=== PATIENT | male | born 2005 | race Caucasian/White ===

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

== ENCOUNTER → 2023-09-09 11:21 | Outpatient (BNVA) | payer MEDICAID, SELFPAY | PROVIDERS: PCP Nurse Practitioner Family; Visit Provider Nurse Practitioner Family | DX: R42 Dizziness and giddiness (principal); Z79.899 Other long term (current) drug therapy; D64.9 Anemia, unspecified | CPT/HCPCS: 80053; 80061; 81003; 82607; 83036; 84439; 84443; 84481; 85025; 87400; 93005 ==

== ENCOUNTER → 2023-09-09 11:21 | Outpatient (BNVA) | payer MEDICAID, SELFPAY | PROVIDERS: PCP Nurse Practitioner Family; Visit Provider Nurse Practitioner Family | DX: R42 Dizziness and giddiness (principal); Z79.899 Other long term (current) drug therapy; D64.9 Anemia, unspecified; Z87.898 Personal history of other specified conditions; Z01.89 Encounter for other specified special examinations; R07.9 Chest pain, unspecified | CPT/HCPCS: 87400 ==

== ENCOUNTER 2023-09-23 09:42 | Emergency (ER) | payer MEDICAID, SELFPAY ==
--- NOTE | 2023-09-23 10:19 | ECG_ITS ---
[facility] Test Date: 2023-09-23 Pat Name: Alex Newton Department: Room: Gender: Male Publicity Person: : 2005 Requested By: Lisa Khalil Order Number: [id number] Armando MD: Ollie North M.D. Measurements Intervals [place] Rate: 88 P: 60 WY: 153 QRS: 92 QRSD: 105 T: 51 QT: 341 QTc: 414 Interpretive Statements SINUS RHYTHM WITH MARKED SINUS ARRHYTHMIA BORDERLINE RIGHT AXIS DEVIATION [QRS AXIS > 90] No previous ECG available for comparison Electronically Signed On 09-23-2023 12:04:41 WEB SITE PROJECT MANAGER by Ollie North M.D. [email or web address] county medical centerLive Matrixmercy health clermont hospitalLife Sciences Discovery [email or web address]/[id number]
[2023-09-23 10:24] VITALS: BP 154/95; PULSE 78; RESP 15; TEMP 36.8; O2SAT 100; BMI 26.4
--- NOTE | 2023-09-23 10:24 | CT_ITS ---
WS: [id number] CT HEAD NONCONTRAST HISTORY: dizzy TECHNIQUE: Contiguous axial imaging performed through the brain in 2.5 mm imaging. Bone and soft tiss ue windows. Sagittal and coronal reformats reviewed. All CT scans at [facility] use at least one of these dose optimization techniques: automated exposure control; mA and/or kV adjustment per pa tient size (includes targeted exams where dose is matched to clinical indication); or iterative recon struction. DLP: 1061.58 mGy.cm COMPARISON: None available. No acute intracranial hemorrhage, midline shift or mass effect. No atrophy or prior infarcts or herniation. Ventricles: Normal size with no hydrocephalus. Paranasal sinuses: As visualized are clear. Mastoid air cells: Well pneumatized. Calvarium and scalp: Skull is intact with no soft tissue edema or swelling. IMPRESSION: Negative head CT.
--- NOTE | 2023-09-23 10:25 | W.ED.GENADLT ---
HPI - General Adult General: Chief complaint: Syncope Stated complaint: passed out at work Time Seen by Provider: 09/23/23 10:18 Source: patient Mode of arrival: ambulatory Limitations: no limitations History of Present Illness: 18-year-old male states that he has been having vertigo for the last 6 months he states he seen his PCP multiple times on meclizine states he continues to have episodes of vertigo states this morning it bent over stood up at work and felt like he was going to pass out. Denies any headache denies any vomiting. It is much worse with sudden movements. Associated symptoms: Deny chest pain, dyspnea, headache(s), nausea, rash or vomiting Review of Systems Const: Denies: fever(s), chills, body aches or change in appetite Eyes: Denies: blurry vision or eye discomfort ENMT: Denies: throat pain or dental pain Card: Denies: chest pain Resp: Denies: dyspnea GI: Denies: abdominal pain, nausea, vomiting or diarrhea Musc: Denies: neck pain or back pain Skin/Breast: Denies: rash Neuro: Reports: dizziness; Denies: headache(s) PFSH ED PFSH: Medical History Chest pain History of tachycardia Nausea & vomiting Dizziness Hypertension screen Medication management Fatigue Vitamin D deficiency Neck pain Pseudomonas aeruginosa infection Staph skin infection Social History Smoking and tobacco/nicotine status: never used tobacco/nicotine Second hand smoke exposure: No Alcohol intake: never Substance/Drug Use: never Physical Exam Const: COMMON NORMALS: no acute distress, patient oriented x3 and healthy appearing HENMT: COMMON NORMALS: normocephalic and atraumatic HEAD & SCALP: normocephalic and atraumatic Eye: COMMON NORMALS: Equal, round and reactive pupils present and EOMs intact bilaterally PUPIL: Yes Equal, round and reactive pupils present OTHER: no nystagmus Neck/C-Spine: COMMON NORMALS: full ROM and supple Chest: COMMONS NORMALS: normal inspection of the chest Resp: COMMON NORMALS: normal respiratory effort, No retractions, No use of accessory muscles and clear to auscultation bilaterally AUSCULTATION: clear to auscultation bilaterally Cardio: COMMON NORMALS: regular rate, regular rhythm and No murmurs present (Cardio) RATE: regular rate RHYTHM: regular rhythm Extremity: COMMON NORMALS: normal to inspection and full ROM Neuro: COMMON NORMALS: patient oriented x3, moves all extremities and no focal motor deficits Psych: COMMON NORMALS: mental status grossly normal, Normal thought process present and cooperative THOUGHT PROCESS: Normal thought process present Skin: COMMON NORMALS: no rashes or lesions noted and no wounds GENERAL SKIN EXAM: no rashes or lesions noted Course Vital Signs: Vital signs: Vital Signs Temperature 98.2 F 09/23/23 10:24 Pulse Rate 78 09/23/23 10:24 Respiratory Rate 15 09/23/23 10:24 Blood Pressure 154/95 09/23/23 10:24 Pulse Oximetry 100 09/23/23 10:24 Oxygen Delivery Me thod Room Air 09/23/23 10:24 MDM - General Adult Medical Decision Making Patient presents here with vertigo it has been going on for months he is well-appearing here he has no signs of a stroke head CT is normal we will get him follow-up with neurology he is return if worsening he understands agrees to plan Medical Records I reviewed the patient's medical records. Lab Data I reviewed the patient's lab results. 09/23/23 10:24 09/23/23 10:24 Laboratory Results WBC 6.30 10^3/uL (4.5-13.0) 09/23/23 10:24 RBC 5.21 10^6/uL (3.85-5.65) 09/23/23 10:24 Hgb 15.00 g/dL (13.2-15.6) 09/23/23 10:24 Hct 44.0 % (37-53) 09/23/23 10:24 MCV 84.5 fl (82-101) 09/23/23 10:24 MCH 28.8 pg (27-33) 09/23/23 10:24 MCHC 34.1 g/dL (30-55) 09/23/23 10:24 RDW 11.9 % (12.1-15.1) L 09/23/23 10:24 Plt Count 199 10^3/cmm (157-399) 09/23/23 10:24 MPV 8.9 fL (7.4-10.4) 09/23/23 10:24 Neut % (Auto) 65.8 % 09/23/23 10:24 Lymph % (Auto) 21.1 % 09/23/23 10:24 Barnes % (Auto) 8.9 % 09/23/23 10:24 Eos % (Auto) 3.7 % 09/23/23 10:24 Baso % (Auto) 0.3 % 09/23/23 10:24 Neut # (Auto) 4.15 10^3/uL (1.8-8.0) 09/23/23 10:24 Lymph # (Auto) 1.3 10^3/uL (1.5-6.5) L 09/23/23 10:24 Barnes # (Auto) 0.6 10^3/uL (0.2-0.9) 09/23/23 10:24 Eos # (Auto) 0.2 10^3/uL (0.0-0.8) 09/23/23 10:24 Baso # (Auto) 0.0 10^3/uL (0.0-0.1) 09/23/23 10:24 Nucleated RBC % (auto) 0 % 09/23/23 10:24 Nucleated RBCs # 0.0 /100WBC 09/23/23 10:24 Sodium 140 mmol/L (136-145) 09/23/23 10:24 Potassium 3.8 mmol/L (3.5-5.1) 09/23/23 10:24 Chloride 102 mmol/L (98-107) 09/23/23 10:24 Carbon Dioxide 26 mmol/L (22-29) 09/23/23 10:24 Anion Gap 15.8 (5-19) 09/23/23 10:24 BUN 14 mg/dL (6-20) 09/23/23 10:24 Creatinine 0.7 mg/dL (0.7-1.2) 09/23/23 10:24 GFR Calculation 143.8 mL/min (90-130) H 09/23/23 10:24 Glucose 101 mg/dL (65-115) 09/23/23 10:24 Calculated Osmolality 291 mOsm/kg (285-295) 09/23/23 10:24 Calcium 9.3 mg/dL (8.5-10.5) 09/23/23 10:24 Total Bilirubin 0.4 mg/dL (0.15-1.2) 09/23/23 10:24 AST 14 U/L (0-40) 09/23/23 10:24 ALT 19 U/L (0-41) 09/23/23 10:24 Alkaline Phosphatase 82 U/L (40-130) 09/23/23 10:24 Total Protein 7.4 g/dL (6.6-8.7) 09/23/23 10:24 Albumin 4.6 g/dL (3.5-5.2) 09/23/23 10:24 Globulin 2.8 g/dL (1.3-4.6) 09/23/23 10:24 All radiology interpretation(s) finalized by discharge EKG Data EKG 1: I personally reviewed and interpreted this EKG as follows: EKG interpretation date: 09/23/23 EKG interpretation time: 10:19 Interpretation: nsr hr [address] or t wave abnormalities qrs 105 qtc 387 Discharge Plan Discharge Patient Disposition: Home Clinical Impression: Vertigo Condition: Stable Prescriptions: No Action meclizine 12.5 mg tablet 12.5 mg PO .q6 PRN (Reason: dizziness) 30 Days Qty: 30 0RF Discharge Orders: Discharge ED (Routine); Ordered 09/23/23 Ordered By: Lisa Khalil Referrals: Thaddeus Gaspar MD [Physician] - 1-3 days SCOTT Kennedy FNP [Primary Care Provider] - Discharge Diet: Advance as tolerated Discharge Activity: Resume usual activity Patient Instructions: Vertigo (ED) Coding Level of Care Code ED Workers Compensation Examiner for [employer]isg Milagros
[2023-09-23 10:30] LABS: Basophils % 0.3 %; Eosinophils # 0.2 10^3/uL (0.0-0.8); Eosinophils % 3.7 %; Lymphocytes # 1.3 10^3/uL (1.5-6.5); Lymphocytes % 21.1 %; Mean Corpuscular HGB Conc 34.1 g/dL (30-55); Mean Corpuscular Hemoglobin 28.8 pg (27-33); Mean Corpuscular Volume 84.5 fl (82-101); Mean Platelet Volume 8.9 fL (7.4-10.4); Monocytes # 0.6 10^3/uL (0.2-0.9); Monocytes % 8.9 %; Neutrophils # 4.15 10^3/uL (1.8-8.0); Neutrophils % 65.8 %; Nucleated Red Blood Cells % 0 %; Platelet Count 199 10^3/cmm (157-399); Red Blood Count 5.21 10^6/uL (3.85-5.65); Red Cell Distribution Width 11.9 % (12.1-15.1)
[2023-09-23 10:49] LABS: Alanine Aminotransferase 19 U/L (0-41); Albumin Level 4.6 g/dL (3.5-5.2); Alkaline Phosphatase 82 U/L (40-130); Anion Gap 15.8 (5-19); Aspartate Amino Transferase 14 U/L (0-40); Blood Urea Nitrogen 14 mg/dL (6-20); Calcium 9.3 mg/dL (8.5-10.5); Carbon Dioxide 26 mmol/L (22-29); Chloride 102 mmol/L (98-107); Globulin 2.8 g/dL (1.3-4.6); Glomerular Filtration Rate 143.8 mL/min (90-130); Glucose 101 mg/dL (65-115); Osmolality Calculated 291 mOsm/kg (285-295); Potassium 3.8 mmol/L (3.5-5.1); Sodium 140 mmol/L (136-145); Total Bilirubin 0.4 mg/dL (0.15-1.2); Total Protein 7.4 g/dL (6.6-8.7)
--- NOTE | 2023-09-24 03:56 | DCPLANNER ---
Message sent to Neurology for follow up on Vertigo.
== END 2023-09-23 12:11 | disposition home or self-care (01) ==
PROVIDERS: Emergency Provider Emergency Medicine; PCP Nurse Practitioner Family
DX: R42 Dizziness and giddiness (principal)
CPT/HCPCS: 36415; 70450; 80053; 85025; 93005; 99284